=== PATIENT | male | born 1970 | race Caucasian/White ===

== ENCOUNTER 2019-12-20 18:08 | Emergency (ER) | payer MEDICAID, SELFPAY ==
[2019-12-20 18:10] VITALS: BP 151/100; PULSE 90; RESP 15; TEMP 36.9; O2SAT 100; BMI 25.2
--- NOTE | 2019-12-20 18:41 | ED.DCSUM_ITS ---
- ER Visit Summary Date of Service: 12/20/19 Chief Complaint: Dental pain History of Present Illness: The patient is a [address] Yu. He goes to [facility] in [place]. He reports that yesterday he bit into an apple and his right maxillary first molar became very loose. States he has a sharp pain is 10 on 10 severity. Is worsened by eating and hot or cold temperatures. Physical Examination: Vitals: Stable. Afebrile. Mouth: No trismus. No edema of the floor of the mouth. Right maxillary first molar is extremely loose. There is a great deal of root that is visible on the inside surface of the tooth. The root on the outside is not visible and is the only thing that is holding this tooth in place. There are caries in both his teeth around this. There is no focal abscess. There is no trismus. General: A&O x 3. NAD. Cardiovascular exam: Regular rate and rhythm, no murmur, rub or gallop. Respiratory exam: Clear to auscultation bilaterally. No wheezes or stridor. Abdominal exam: Soft, nontender, nondistended, normal bowel sounds. No peritoneal signs. Extremity: No clubbing, cyanosis, or edema. Emergency Department Course and Treatment: Patient was treated penicillin naproxen and [place]. He is resting comfortably. Treatment Plan: Patient be discharged instructed to follow-up the dentist as soon as possible. Is given a prescription for 10 [place], naproxen, and penicillin. Disposition: To home in improved and stable condition. Impression: 1. Dental pain. This note was generated with [employer] dictation software. It may contain incorrect words, spelling, and punctuation that were not noted in review of the chart prior to signing ED Disposition - Plan for ED Patient: Disposition: Home or Assisted Living Instructions: Dental Trauma Prescriptions: Naproxen [Naprosyn] 500 mg PO BID #14 tab Prescription Printed Hydrocodone Bitart/Apap 5-325 [[place] 5MG-325MG] 1 tab PO Q4H PRN PRN 2 Days #10 tab PRN Reason: Pain Prescription Printed Penicillin V Potassium 500 mg PO 4X/DAY #40 tab Prescription Printed Referrals: Dentist,Your [STAFF PHYSICIAN] - As soon as possible
[2019-12-20] MEDS: Naproxen 250 MG Tablet 500 MG PO (18:49)
[2019-12-20] MEDS: Penicillin Vk 250 MG Tablet 500 MG PO (18:49)
[2019-12-20] MEDS: HYDROcodone Bitartrate/Apap 5/325 Tablet PO (18:49)
== END 2019-12-20 18:57 | disposition home or self-care (01) ==
LOC: ED 18:56
PROVIDERS: Emergency Provider Emergency Medicine; PCP Family Medicine
DX: K08.89 Other specified disorders of teeth and supporting structures (principal); Z72.0 Tobacco use
CPT/HCPCS: 99282

== ENCOUNTER 2023-11-21 22:29 | Emergency (ER) | payer MEDICAID, SELFPAY ==
[2023-11-21 22:30] VITALS: BP 133/98; PULSE 87; RESP 18; TEMP 36.6; O2SAT 99; BMI 26.0
[2023-11-21] MEDS: Naproxen 500 MG Tablet PO (23:01)
[2023-11-21] MEDS: Penicillin Vk 250 MG Tablet 500 MG PO (23:01)
[2023-11-21 23:03] VITALS: BP 132/60; PULSE 75; RESP 16; O2SAT 96
--- NOTE | 2023-11-21 23:05 | ED.VIS.DENTA ---
HPI History of Present Illness Chief Complaint: Dental Informant: patient Narrative Narrative: Patient hurt his left central incisor about 2 weeks ago. He was painting overhead accidentally dropped the paint brush and it landed on his tooth. It has been slightly loose since. He evidently has contacted a dentist and he is seeing them next week. But about a week after he did this is started to get sore. He feels the gum is a little swollen. No fevers or chills. PFSH PFSH Medical History no medical history Home Medications naproxen 500 mg tablet (Naprosyn) 500 mg PO BID PRN pain #20 tabs 11/21/23 [Rx Last Taken Unknown] penicillin V potassium 500 mg tablet 500 mg PO 4X/DAY #40 tabs 11/21/23 [Rx Last Taken Unknown] Allergy/AdvReac Type Severity Reaction Status Date / Time No Known Allergies Allergy Verified 11/21/23 22:30 Social History Smoking Status: Current every day smoker tobacco type: cigarettes ROS ROS ED Constitutional Constitutional ED: Denies chills or fever(s) Eyes Eyes: Denies change in vision ENT ENT ED: Reports other Details: See history of present illness. No trouble swallowing Cardiovascular Cardiovascular: Denies chest pain Gastrointestinal Gastrointestinal: Denies nausea or vomiting Musculoskeletal Musculoskeletal: Denies neck pain Hematologic/Lymphatic Hematologic/Lymphatic: Denies easy bleeding or easy bruising EXAM Physical Exam Narrative Exam Narrative: General: Patient awake alert no acute distress. HEENT: Patient has some diffusely poor dentition. Left upper central incisor does have a little bit of looseness but is mild. The gum is retracted. There is some erosion. There is a little bit of redness and slight swelling of the gum on the posterior surface. But no drainable abscess. Floor the mouth is soft. No indication of Tha's. Const Vital Signs: 11/21/23 22:30 11/21/23 23:03 Temperature 98 F Temperature Source Temporal Pulse Rate 87 75 Respiratory Rate 18 16 Blood Pressure 133/98 H 132/60 H Blood Pressure Mean 109 84 Pulse Ox 99 96 Oxygen Delivery Method Room Air MDM MDM MDM Narrative Medical decision making narrative: Patient was treated with nonsteroidals antibiotics and follow-up with his dentist with whom he is already made an appointment. Discharge Plan Triage Chief Complaint: Dental ED Provider: Rashi Rodrigez Dx/Rx/DC Orders Clinical Impression: Pain, dental Instructions: Dental Abscess, Dental Trauma Prescriptions: New penicillin V potassium 500 mg tablet 500 mg PO 4X/DAY Qty: 40 0RF naproxen [Naprosyn] 500 mg tablet 500 mg PO BID PRN (Reason: pain) Qty: 20 0RF Primary Care Provider: Care Physician,No Primary Referrals: Syed Adorno MD [Non-Staff] - Activity Restrictions/Additional Instructions: Follow-up with your dentist as scheduled next week Disposition Disposition: Home, Self Care Discharge Date/Time: 11/21/23 23:03
--- OUTSIDE RECORDS SUMMARY | 2023-11-21 23:09 | XMS RPT_ITS | CCD ---
Author Name Unknown Address [address] [facility] [address] [place] [address] Organization [facility] Care Team Providers Care Activities Assistant Name Role Phone SUSHILA GHOSH, AMERICO Membreno Primary Care Physician MARE GHOSH, BIA [facility] caio CONTI MD., DR. AMERICO Membreno Primary Care Unavai lable Allergies Allergy Classification Reported Allergen(s) Allergy Type Date of Onset Reaction(s) Facility (1 source) Bee/Wasp/Ant venom Allergy to substance Anaphylactic reaction [facility] Medications Current Medications Medication Drug Class(es) Dates Sig (Normalized) Sig (Original) cyclobenzaprine hydrochloride 7.5 mg oral tablet (1 source) Muscle Relaxant Start: 07-23-2022 End: 08-02-2022 cyclobenzaprine 7.5 mg oral tablet Dose : 7.5 mg = 1 tab(s), Oral, TID, PRN for muscle spasm, X 10 day(s), # 30 tab(s), 0 Refill(s), 08/02/22 15:15:00 EDT, Sciatica Start Date: 07/23/22 Stop Date: 08/02/22 Status: Ordered naproxen 250 mg oral tablet (2 sources) Nonsteroidal Anti-inflammatory Drug Start: 07-23-2022 End: 08-02-2022 naproxen 250 mg oral tablet Dose : 250 mg = 1 tab(s), Oral, BID, X 10 day(s), # 20 tab(s), 0 Refill(s), 08/02/22 15:14:00 EDT, Sciatica Start Date: 07/23/22 Stop Date: 08/02/22 Status: Ordered Problems Problem Classification Problem Date Documented Da te Episodic/Chronic Open wounds of extremities (1 source) Dog bite of hand 03-22-2021 Episodic Other circulatory disease (1 source) Elevated blood pressure 07-17-2019 Episodic Spondylosis; intervertebral disc disorders; other back problems (1 source) Sciatica; Translations: [Sciatica, unspecified side] Onset: 07-23-2022 Episodic Vital Signs Date Time Vital Sign Value Performing Clinician Abmer milian 07-23-2022 15:26-0400 Diastolic blood pressure 94 mm[Hg] BIA GARVEY MD [facility] 07-23-2022 15:26-0400 Heart rate 84 /min BIA GARVEY MD [facility] 07-23-2022 15:26-0400 Respiratory rate 16 /min BIA GARVEY MD [facility] 07-23-2022 15:26-0400 Systolic blood pressure 126 mm[Hg] BIA GARVEY MD [facility] 07-23-2022 14:08-0400 Body height 167.6 cm BIA GARVEY MD [facility] 07-23-2022 14:08-0400 Body temperature 98.6 [degF] BIA GARVEY MD [facility] 07-23-2022 14:08-0400 Body weight 80 kg BIA GARVEY MD [facility] 07-23-2022 14:08-0400 Diastolic blood pressure 92 mm[Hg] BIA GARVEY MD [facility] 07-23-2022 14:08-0400 Heart rate 91 /min BIA GARVEY MD [facility] 07-23-2022 14:08-0400 Respiratory rate 24 /min BIA GARVEY MD [facility] 07-23-2022 14:08-0400 Systolic blood pressure 136 mm[Hg] BIA GARVEY MD [facility] Encounters Encounter Date Encounter Type Care Provider Facility Start: 07-23-2022 End: 07-23-2022 Emergency department patient visit BIA GARVEY MD Facility:B Start: 07-23-2022 End: 07-23-2022 Emergency department patient visit BIA GARVEY MD [facility] Procedures Date Procedure Procedure Detail Performing Clinician None (qualifier value) BIA GARVEY MD Payers Date Payer Category Payer Unknown [id number] 1970 Unknown [id number] Social History Date Type Detail Facility Start: 07-13-2019 Tobacco smoking status Heavy t obacco smoker (finding) [facility] Sex Assigned At Male [facility] Functional Status Date Assessment Result Facility 07-23-2022 Functional Status Independent [facility] 07-23-2022 Functional Status Resting [facility] Mental Status Date Assessment Result Facility 07-23-2022 Mental Status Orientation Oriented x 4 [facility] 07-23-2022 Mental Status [facility] Discharge instructions 07-23-2022 Note Date & Type Note Facility 07-23-2022 Hospital Discharg e instructions Patient Education 07/23/2022 15:15:11 BACK PAIN w/ SCIATICA Sciatica Sciatica is a condition that causes pain in the lower back and down into the buttock, hip, and leg. Sometimes the leg pain can happen without any back pain. Sciatica happens when a spinal nerve is irritated or has pressure put on it as comes out of the spinal canal in the lower back. This most often happens when a bulge or rupture of a nearby spinal disk presses on the nerve. Sciatica can also be caused by a narrowing of the spinal canal (spinal stenosis) or spasm of the muscle in the buttocks that the sciatic nerve passes through (pyriform muscle). Sciatica is also called lumbar radiculopathy. Sciatica may begin after a sudden twisting or bending force, such as in a car accident. Or it can happen after a simple awkward movement. In either case, muscle spasm often also happens. Muscle spasm makes the pain worse. A health care provider makes a diagnosis of sciatica from your symptoms and a physical exam. Unless you had an injury from a car accident or fall, you usually won t have X-rays taken at this time. This is because the nerves and disks in your back can t be seen on an X-ray. If the provider sees signs of a compressed nerve, you will need to schedule an MRI scan as an outpatient. Signs of a compressed nerve include loss of strength in a leg. Most sciatica gets better with medicine, exercise, and physical therapy. If your symptoms continue after at least 3 months of medical treatment, you may need surgery. Home care Follow these tips when caring for yourself at home: You may need to stay in bed the first few days. But as soon as possible, begin sitting or walking. This will help you avoid problems that come from staying in bed for long periods. When in bed, try to find a position that is comfortable. A firm mattress is best. Try lying flat on your back with pillows under your knees. You can also try lying on your side with your knees bent up toward your chest and a pillow between your knees. Avoid sitting for long periods. This puts more stress on your lower back than standing or walking. Use heat from a hot shower, hot bath, or heating pad to help ease pain. Massage can also help. You can also try using an ice pack. You can make your own ice pack by putting ice cubes in a plastic bag. Wrap the bag in a thin towel. Try both heat and cold to see which works best. Use the method that feels best for 20 minutes several times a day. You may use acetaminophen or ibuprofen to ease pain, unless another pain medicine was prescribed. Note: If you have chronic liver or kidney disease, talk with your health care provider before taking these medicines. Also talk with your provider if you ve had a stomach ulcer or GI bleeding. Use safe lifting methods. Don t lift anything heavier than 15 pounds until all of the pain is gone. Follow-up care Follow up with your health care provider if your symptoms don t start to get better after 1 week. You may need physical therapy or additional tests. If X-rays were taken, they will be looked at by a radiologist. You will be told of any new findings that may affect your care. When to seek medical advice Call your health care provider right away if any of these occur: Pain gets worse even after taking prescribed medicine Weakness or numbness in 1 or both legs or hips Numbness in your groin or genital area You can t control your bowel or bladder Fever Redness or swelling over your back or spine [id number] [employer]. [address] [place] [address]. All rights reserved. This information is not intended as a substitute for professional medical care. Always follow your healthcare professional's instructions. Follow Up Care 07/23/2022 14:00:52 With:AMERICO CONTI MD Address: [address] [place] [address] [id number] When:2-4 days [facility] Clinical Note 07-23-2022 Note Date & Type Note Facility 07-23-2022 Note Discharge Instructions Thank you for allowing [facility] to assist you with your healthcare needs. The following is important discharge information regarding your hospital visit. Diagnosis from Today's Visit Sciatica Back pain What to Do Next Instructions from Your Care Team No qualifying data available. Post Acute Orders No qualifying data available. You Need to Schedule the Following Appointments Follow Up with AMERICO CONTI MD When Within 2-4 days Where: [address] [place] [address] [phone]- Allergies Bee Stings (Anaphylactic reaction) Medications Please ask your primary doctor or pharmacist before taking any other medication not listed, including over the counter drugs, herbal medications, vitamins and or supplements as they may interact with your home medications. What How Much When Why Instructions Last Dose New cyclobenzaprine (cyclobenzaprine 7.5 mg oral tablet) 1 tab(s) by mouth Three (3) times a day as needed for for muscle spasm Sciatica Duration: 10 Days Printed Prescription Changed naproxen (naproxen 250 mg oral tablet) 1 tab(s) by mouth Two (2) times a day Sciatica Duration: 10 Days Printed Prescription Please take this list to your next doctor s visit. Bring all medications you take, including over the counter medications, herbals and other supplements with you to your doctor s visit. Patients and families are reminded to discard old lists and to update any records with all medication providers or retail pharmacies. Medication Leaflets cyclobenzaprine (esmer ferreira) Jenelleix, Comfort Pac with Cyclobenzaprine, Fexmid What is the most important information I should know about cyclobenzaprine? You should not use cyclobenzaprine if you have a thyroid disorder, heart block, congestive heart failure, a heart rhythm disorder, or you have recently had a heart attack. Do not use cyclobenzaprine if you have taken an MAO inhibitor in the past 14 days, such as isocarboxazid, linezolid, phenelzine, rasagiline, selegiline, or tranylcypromine. What is cyclobenzaprine? Cyclobenzaprine is a muscle relaxant. It works by blocking nerve impulses (or pain sensations) that are sent to your brain. Cyclobenzaprine is used together with rest and physical therapy to relieve muscle spasms caused by painful conditions such as an injury. Cyclobenzaprine may also be used for purposes not listed in this medication guide. What should I discuss with my healthcare provider before taking cyclobenzaprine? You should not use cyclobenzaprine if you are allergic to it, or if you have: a thyroid disorder; heart block, heart rhythm disorder, congestive heart failure; or if you have recently had a heart attack. Cyclobenzaprine is not approved for use by anyone younger than 15 years old. Do not use cyclobenzaprine if you have taken an MAO inhibitor in the past 14 days. A dangerous drug interaction could occur. MAO inhibitors include isocarboxazid, linezolid, phenelzine, rasagiline, selegiline, and tranylcypromine. Some medicines can interact with cyclobenzaprine and cause a serious condition called serotonin syndrome. Be sure your doctor knows if you also take stimulant medicine, opioid medicine, herbal products, or medicine for depression, mental illness, Parkinson's disease, migraine headaches, serious infections, or prevention of nausea and vomiting. Ask your doctor before making any changes in how or when you take your medications. Tell your doctor if you have ever had: liver disease; glaucoma; enlarged prostate; or problems with urination. It is not known whether this medicine will harm an unborn baby. Tell your doctor if you are or plan to become . It may not be safe to breast-feed while using this medicine. Ask your doctor about any risk. Older adults may be more sensitive to the effects of this medicine. How should I take cyclobenzaprine? Follow all directions on your prescription label and read all medication guides or instruction sheets. Your doctor may occasionally change your dose. Use the medicine exactly as directed. Cyclobenzaprine is usually taken once daily for only 2 or 3 weeks. Follow your doctor's dosing instructions very carefully. Swallow the capsule whole and do not crush, chew, break, or open it. Take the medicine at the same time each day. Call your doctor if your symptoms do not improve after 3 weeks, or if they get worse. Store at room temperature away from moisture, heat, and light. What happens if I miss a dose? Take the medicine as soon as you can, but skip the missed dose if it is almost time for your next dose. Do not take two doses at one time. What happens if I overdose? Seek emergency medical attention or call the Poison Help line at . An overdose of cyclobenzaprine can be fatal. Overdose symptoms may include severe drowsiness, vomiting, fast heartbeats, tremors, agitation, or hallucinations. What should I avoid while taking cyclobenzaprine? Avoid driving or hazardous activity until you know how this medicine will affect you. Your reactions could be impaired. Avoid drinking alcohol. Dangerous side effects could occur. What are the possible side effects of cyclobenzaprine? Get emergency medical help if you have signs of an allergic reaction: hives; difficult breathing; swelling of your face, lips, tongue, or throat. Stop using cyclobenzaprine and call your doctor at once if you have: fast or irregular heartbeats; chest pain or pressure, pain spreading to your jaw or shoulder; or sudden numbness or weakness (especially on one side of the body), slurred speech, balance problems. Seek medical attention right away if you have symptoms of serotonin syndrome, such as: agitation, hallucinations, fever, sweating, shivering, fast heart rate, muscle stiffness, twitching, loss of coordination, nausea, vomiting, or diarrhea. Serious side effects may be more likely in older adults. Common side effects may include: drowsiness, tiredness; headache, dizziness; dry mouth; or upset stomach, nausea, constipation. This is not a complete list of side effects and others may occur. Call your doctor for medical advice about side effects. You may report side effects to FDA at 9-005-QWY-9915. What other drugs will affect cyclobenzaprine? Using cyclobenzaprine with other drugs that make you drowsy can worsen this effect. Ask your doctor before using opioid medication, a sleeping pill, a muscle relaxer, or medicine for anxiety or seizures. Tell your doctor about all your other medicines, especially: bupropion (Zyban, for smoking cessation); meperidine; tramadol; verapamil; cold or allergy medicine that contains an antihistamine (Benadryl and others); medicine to treat Parkinson's disease; medicine to treat excess stomach acid, stomach ulcer, motion sickness, or irritable bowel syndrome; medicine to treat overactive bladder; or bronchodilator asthma medication. This list is not complete. Other drugs may affect cyclobenzaprine, including prescription and [id number] medicines, vitamins, and herbal products. Not all possible drug interactions are listed here. Where can I get more information? Your pharmacist can provide more information about cyclobenzaprine. Remember, keep this and all other medicines out of the reach of children, never share your medicines with others, and use this medication only for the indication prescribed. Every effort has been made to ensure that the information provided by [employer]. [employer]') is accurate, up-to-date, and complete, but no guarantee is made to that effect. Drug information contained herein may be time sensitive. [employer] information has been compiled for use by healthcare practitioners and consumers in the [place] and therefore [employer] does not warrant that uses outside of the [place] are appropriate, unless specifically indicated otherwise. [employer] drug information does not endorse drugs, diagnose patients or recommend therapy. [employer] drug information is an informational resource designed to assist licensed healthcare practitioners in caring for their patients and/or to serve consumers viewing this service as a supplement to, and not a substitute for, the expertise, skill, knowledge and judgment of healthcare practitioners. The absence of a warning for a given drug or drug combination in no way should be construed to indicate that the drug or drug combination is safe, effective or appropriate for any given patient. [employer] does not assume any responsibility for any aspect of healthcare administered with the aid of information [employer] provides. The information contained herein is not intended to cover all possible uses, directions, precautions, warnings, drug interactions, allergic reactions, or adverse effects. If you have questions about the drugs you are taking, check with your doctor, nurse or pharmacist. Copyright 8500-9305 [employer]. Version: 5.01. Revision Date: 07/09/2018. naproxen (na PROX en) Aleve, Anaprox-DS, Midol Extended Relief, Naprelan 500, Naprosyn What is the most important information I should know about naproxen? Naproxen can increase your risk of fatal heart attack or stroke. Do not use this medicine just before or after heart bypass surgery (coronary artery bypass graft, or CABG). Naproxen may also cause stomach or intestinal bleeding, which can be fatal. What is naproxen? Naproxen is a nonsteroidal anti-inflammatory drug (NSAID). Naproxen is used to treat pain or inflammation caused by conditions such as arthritis, ankylosing spondylitis, tendinitis, bursitis, gout, or menstrual cramps. The delayed-release or extended-release tablets are slower-acting forms of naproxen that are used only for treating chronic conditions such as arthritis or ankylosing spondylitis. These forms of naproxen will not work fast enough to treat acute pain. Naproxen may also be used for purposes not listed in this medication guide. What should I discuss with my healthcare provider before taking naproxen? Naproxen can increase your risk of fatal heart attack or stroke, even if you don't have any risk factors. Do not use this medicine just before or after heart bypass surgery (coronary artery bypass graft, or CABG). Naproxen may also cause stomach or intestinal bleeding, which can be fatal. These conditions can occur without warning while you are using naproxen, especially in older adults. You should not use naproxen if you are allergic to it, or if you have ever had an asthma attack or severe allergic reaction after taking aspirin or an NSAID. Ask a doctor before giving naproxen to a child younger than 12 years old. Ask a doctor or pharmacist if this medicine is safe to use if you have: heart disease, high blood pressure, high cholesterol, diabetes, or if you smoke; a heart attack, stroke, or blood clot; stomach ulcers or bleeding; asthma; liver or kidney disease; fluid retention; or if you take aspirin to prevent heart attack or stroke. If you are , you should not take naproxen unless your doctor tells you to. Taking an NSAID during the last 20 weeks of can cause serious heart or kidney problems in the unborn baby and possible complications with your . It may not be safe to breastfeed while using this medicine. Ask your doctor about any risk. How should I take naproxen? Use exactly as directed on the label, or as prescribed by your doctor. Use the lowest dose that is effective in treating your condition. Shake the oral suspension (liquid) before you measure a dose. Measure a dose with the supplied measuring device (not a kitchen spoon). Take this medicine with food or milk if it upsets your stomach. Always follow directions on the medicine label about giving this medicine to a child. Naproxen doses are based on weight in children. Your child's dose needs may change if the child gains or loses weight. If you use naproxen long-term, you may need frequent medical tests. This medicine can affect the results of certain medical tests. Tell any doctor who treats you that you are using naproxen. Store at room temperature away from moisture, heat, and light. Keep the bottle tightly closed when not in use. What happens if I miss a dose? Since naproxen is used when needed, you may not be on a dosing schedule. Skip any missed dose if it's almost time for your next dose. Do not use two doses at one time. What happens if I overdose? Seek emergency medical attention or call the Poison Help line at . What should I avoid while taking naproxen? Avoid drinking alcohol. It may increase your risk of stomach bleeding. Avoid taking aspirin or other NSAIDs unless your doctor tells you to. Ask a doctor or pharmacist before using other medicines for pain, fever, swelling, or cold/flu symptoms. They may contain ingredients similar to naproxen (such as aspirin, ibuprofen, or ketoprofen). Ask your doctor before using an antacid, and use only the type your doctor recommends. Some antacids can make it harder for your body to absorb naproxen. What are the possible side effects of naproxen? Get emergency medical help if you have signs of an allergic reaction (runny or stuffy nose, wheezing or trouble breathing, hives, swelling in your face or throat) or a severe skin reaction (fever, sore throat, burning eyes, skin pain, red or purple skin rash with blistering and peeling). Stop using naproxen and seek medical treatment if you have a serious drug reaction that can affect many parts of your body. Symptoms may include skin rash, fever, swollen glands, muscle aches, severe weakness, unusual bruising, or yellowing of your skin or eyes. Get emergency medical help if you have signs of a heart attack or stroke: chest pain spreading to your jaw or shoulder, sudden numbness or weakness on one side of the body, slurred speech, leg swelling, feeling short of breath. Stop using naproxen and call your doctor at once if you have: shortness of breath (even with mild exertion); swelling or rapid weight gain; the first sign of any skin rash or blister, no matter how mild; signs of stomach bleeding--bloody or tarry stools, coughing up blood or vomit that looks like coffee grounds; liver problems--nausea, upper stomach pain, loss of appetite, dark urine, mindy-colored stools, jaundice (yellowing of the skin or eyes); kidney problems--little or no urination, painful urination, swelling in your feet or ankles; or low red blood cells (anemia)--pale skin, unusual tiredness, feeling light-headed or short of breath, cold hands and feet. Common side effects may include: headache; indigestion, heartburn, stomach pain; or flu symptoms; This is not a complete list of side effects and others may occur. Call your doctor for medical advice about side effects. You may report side effects to FDA at 1-323-RLD-4400. What other drugs will affect naproxen? Ask your doctor before using naproxen if you take an antidepressant. Taking certain antidepressants with an NSAID may cause you to bruise or bleed easily. Ask a doctor or pharmacist before using naproxen with any other medications, especially: other NSAIDs or salicylates (diflunisal, salsalate); antacids and sucralfate; cholestyramine; cyclosporine; digoxin; lithium; methotrexate; pemetrexed; probenecid; warfarin (Coumadin, Jantoven) or similar blood thinners; a diuretic or 'water pill'; or heart or blood pressure medication. This list is not complete. Other drugs may affect naproxen, including prescription and npvo-oae-lanvmpf medicines, vitamins, and herbal products. Not all possible drug interactions are listed here. Where can I get more information? Your pharmacist can provide more information about naproxen. Remember, keep this and all other medicines out of the reach of children, never share your medicines with others, and use this medication only for the indication prescribed. Every effort has been made to ensure that the information provided by [employer] is accurate, up-to-date, and complete, but no guarantee is made to that effect. Drug information contained herein may be time sensitive. [employer] information has been compiled for use by healthcare practitioners and consumers in the [place] and therefore [employer] does not warrant that uses outside of the [place] are appropriate, unless specifically indicated otherwise. [employer] information does not endorse drugs, diagnose patients or recommend therapy. [employer] drug information is an informational resource designed to assist licensed healthcare practitioners in caring for their patients and/or to serve consumers viewing this service as a supplement to, and not a substitute for, the expertise, skill, knowledge and judgment of healthcare practitioners. The absence of a warning for a given drug or drug combination in no way should be construed to indicate that the drug or drug combination is safe, effective or appropriate for any given patient. [employer] does not assume any responsibility for any aspect of healthcare administered with the aid of information [employer] provides. The information contained herein is not intended to cover all possible uses, directions, precautions, warnings, drug interactions, allergic reactions, or adverse effects. If you have questions about the drugs you are taking, check with your doctor, nurse or pharmacist. Copyright 0844-5033 [employer]. Version: 20.. Revision Date: 02/20/2022. Education Materials Sciatica Sciatica is a condition that causes pain in the lower back and down into the buttock, hip, and leg. Sometimes the leg pain can happen without any back pain. Sciatica happens when a spinal nerve is irritated or has pressure put on it as comes out of the spinal canal in the lower back. This most often happens when a bulge or rupture of a nearby spinal disk presses on the nerve. Sciatica can also be caused by a narrowing of the spinal canal (spinal stenosis) or spasm of the muscle in the buttocks that the sciatic nerve passes through (pyriform muscle). Sciatica is also called lumbar radiculopathy. Sciatica may begin after a sudden twisting or bending force, such as in a car accident. Or it can happen after a simple awkward movement. In either case, muscle spasm often also happens. Muscle spasm makes the pain worse. A health care provider makes a diagnosis of sciatica from your symptoms and a physical exam. Unless you had an injury from a car accident or fall, you usually won t have X-rays taken at this time. This is because the nerves and disks in your back can t be seen on an X-ray. If the provider sees signs of a compressed nerve, you will need to schedule an MRI scan as an outpatient. Signs of a compressed nerve include loss of strength in a leg. Most sciatica gets better with medicine, exercise, and physical therapy. If your symptoms continue after at least 3 months of medical treatment, you may need surgery. Home care Follow these tips when caring for yourself at home: You may need to stay in bed the first few days. But as soon as possible, begin sitting or walking. This will help you avoid problems that come from staying in bed for long periods. When in bed, try to find a position that is comfortable. A firm mattress is best. Try lying flat on your back with pillows under your knees. You can also try lying on your side with your knees bent up toward your chest and a pillow between your knees. Avoid sitting for long periods. This puts more stress on your lower back than standing or walking. Use heat from a hot shower, hot bath, or heating pad to help ease pain. Massage can also help. You can also try using an ice pack. You can make your own ice pack by putting ice cubes in a plastic bag. Wrap the bag in a thin towel. Try both heat and cold to see which works best. Use the method that feels best for 20 minutes several times a day. You may use acetaminophen or ibuprofen to ease pain, unless another pain medicine was prescribed. Note: If you have chronic liver or kidney disease, talk with your health care provider before taking these medicines. Also talk with your provider if you ve had a stomach ulcer or GI bleeding. Use safe lifting methods. Don t lift anything heavier than 15 pounds until all of the pain is gone. Follow-up care Follow up with your health care provider if your symptoms don t start to get better after 1 week. You may need physical therapy or additional tests. If X-rays were taken, they will be looked at by a radiologist. You will be told of any new findings that may affect your care. When to seek medical advice Call your health care provider right away if any of these occur: Pain gets worse even after taking prescribed medicine Weakness or numbness in 1 or both legs or hips Numbness in your groin or genital area You can t control your bowel or bladder Fever Redness or swelling over your back or spine [id number] [employer]. [address] [place] [address]. All rights reserved. This information is not intended as a substitute for professional medical care. Always follow your healthcare professional's instructions. Additional Information VACCINATE! IT SAVES LIVES! Members of the community who have not yet received the COVID-19 vaccine and would like to receive it can visit one of [facility] vaccine clinics. There are many vaccine clinic locations within the [facility]. For locations and available times, please visit [email or web address]. It is important to note that some COVID mobile vaccine clinics are held outdoors and may be canceled in rainy or stormy conditions. To learn more about pediatric vaccinations (ages 5-11), we invite you to visit the [facility] webpage. [email or web address] -[email or web address] To learn more about the COVID-19 vaccine, we invite you to visit the [facility] website for a list of frequently asked questions. [email or web address] [email or web address] [facility] Patient Portal Access Instructions: Stay connected with your healthcare team and access your personal medical information anytime with the [email or web address]. If you would like a full copy of your medical records please contact the [facility] Medical Records Department Saturday through Saturday between 8a.m. and 4:30p.m. Please follow the directions below to access the portal: 1.Access the email account you provided upon registration to the [facility].2.Look for an invitation email from [facility].3.Open the email and access the invitation link: Accept Invitation to [email or web address]4.Fill in the required ortiz to create your account. Sign into [email or web address] with your username and password that you created in the above steps to stay up to date. You can then view a summary of results, a summary of your visits, and the ability to download your summaries to your computer or send the information securely to a physician. Remember that your healthcare information is confidential, so carefully consider who you will allow to register on the [email or web address] Patient Portal for access to your information. You can also access the [email or web address] Patient Portal on the [employer] roshan. Simply click on Health Records under Health Data and then click on the [employer] logo. HOW TO SAFELY DISPOSE OF PRESCRIPTION MEDICATIONS Please use one of the following methods to safely dispose of your unused medications. 1.Use a drug disposal kit: the drug disposal pouch allows you to safely discard your old and unused drugs. Ask your nurse to give you one when you are discharged.2.Visit a local take-back location: Many local pharmacies and police departments have programs that collect old and unwanted prescription drugs. Call your local pharmacy or go to http://bit.[employer]/8O6Vc4e to find one close to you.3.Make use of household items: Use cat litter or old coffee grounds to dispose medications if other options are not available. Mix your drugs with these household products, seal them in an airtight container and throw it into the garbage. Call [facility]: [phone] to be sure your drugs can be disposed of in this way. Some medicines may require a different approach.4.Never flush your medications down the toilet. IF YOU HAVE BEEN PRESCRIBED AN OPIOIDS FOR PAIN If you have been prescribed an opioid (such as hydrocodone, oxycodone or morphine), it is critical to understand the possible side effects and risks of opioid pain medications. Even when taken as directed, opioids can have several side effects including: Tolerance, meaning you might need to take more of a medication for the same pain relief. Nausea, vomiting and/or constipation. Sleepiness, dizziness, dry mouth, confusion, depression or itching. Physical dependence, meaning you have withdrawal symptoms when a medication is stopped ? this can develop within a few days. KNOW YOUR RESPONSIBILITIES It is important to know exactly how much and how often to take the opioid pain medications you are prescribed. Never take opioids in higher amounts or more often than prescribed. Do not combine opioids with alcohol or other drugs that cause drowsiness, such as benzodiazepines, also known as benzos, including diazepam and alprazolam, muscle relaxants or sleep aids. Never sell or share prescription opioids. This is illegal. Store opioids in a secure place and out of reach of others (including children, family, friends and visitors). The last page(s) of this document has been signed and retained as a CHART COPY Signatures Patient Education Materials BACK PAIN w/ SCIATICA Medication Leaflets cyclobenzaprine, naproxen My discharge plan and instructions have been reviewed and explained to me and I,AMAURY MAI understand my current condition and have read and understand these discharge instructions. I have received a written copy of the plan/instructions. If I have questions, I am aware that I should contact my doctor. Patient/Rn Eligibility Signature: _ Date/Time: Relationship to Patient: Witness Name/Signature: Date/Time: [facility] Evaluation + Plan note Note Date & Type Note Facility Evaluation + Plan note No data available for this section [facility] Summary Purpose Family History No Family History Records Found Advance Directives No Advanced Directives Records Found Additional Source Comments Care Team (unrecognized sect ion and content) Care Team Personnel Name: AMERICO CONTI MD Position: P4 Physician - Primary Care Med Service: Active Provider Member Role: Primary Care Physician Address: Address: [address] [facility] [place], [place] [address] Care Team Related Persons Name: MARCY MAI Address: Home [address] [place] [place], [place] [id number] (unrecognized sect ion and content) No Status Records Found INFORMATION SOURCE (unrecogn ized section and content) FOR RECORDS PERTAINING TO PATIENTS WHO ARE OR HAVE BEEN ENROLLED IN A CHEMICAL DEPENDENCY/SUBSTANCEABUSE PROGRAM, SOME INFORMATION MAY BE OMITTED. This clinical summary was aggregated from multiple sources. Caution should be exercised in using it in the provision of clinical care. This summary normalizes information from multiple sources, and as a consequence, information in this document may materially change the coding, format and clinical context of patient data. In addition, data may be omitted in some cases. CLINICAL DECISIONS SHOULD BE BASED ON THE PRIMARY CLINICAL RECORDS. [facility] [employer] provides no warranty or guarantee of the accuracy or completeness of information in this document.
== END 2023-11-21 23:03 | disposition home or self-care (01) ==
LOC: ED 22:58
PROVIDERS: Emergency Provider Emergency Medicine; Visit Provider Emergency Medicine
DX: K08.89 Other specified disorders of teeth and supporting structures (principal); F17.210 Nicotine dependence, cigarettes, uncomplicated
CPT/HCPCS: 99283

== ENCOUNTER 2024-03-25 23:50 | Emergency (ER) | payer SELFPAY ==
[2024-03-25 23:50] VITALS: BP 116/87; PULSE 84; RESP 16; TEMP 36.2; O2SAT 98; BMI 25.1
--- NOTE | 2024-03-26 01:48 | EDS_ITS ---
HPI History of Present Illness HPI Narrative: Patient presents with a fishhook in the side of his left knee that occurred earlier today. Patient states he tried to remove it with a pair of pliers but was unsuccessful. Patient states his last tetanus was within the last 5 years. Patient denies any bleeding. Patient denies any redness or swelling. Patient denies any discharge or drainage. Patient denies any other injuries. Chief Complaint: Foreign Body Informant: patient Onset/Context/Timing Onset: Today Context: Sudden Onset Timing: Continuous Quality of Pain: Dull Location: Left knee Worsened by: Nothing Relieved by: Nothing Associated Symptoms Associated Symptoms: Negative for Parasthesia, Weakness or Loss of Funtion Narrative Tetanus Immunization: <5 years PFSH PFSH Medical History no medical history no medical history Home Medications ?Medication ?Instructions ?Recorded ?Last Taken ?Type NK 03/25/24 Unknown History Allergy/AdvReac Type Severity Reaction Status Date / Time No Known Allergies Allergy Verified 03/25/24 23:50 Surgical History no surgical history no surgical history Social History Smoking Status: Current every day smoker tobacco type: cigarettes ROS ROS ED Constitutional Constitutional ED: Denies chills or fever(s) Eyes Eyes: Denies blurry vision or change in vision ENT ENT ED: Denies rhinorrhea or sore throat Cardiovascular Cardiovascular: Denies chest pain or palpitations Respiratory/Chest Respiratory/Chest: Denies cough or dyspnea Gastrointestinal Gastrointestinal: Denies nausea or vomiting Genitourinary Genitourinary ED: Denies dysuria or hematuria Musculoskeletal Musculoskeletal: Denies back pain or neck pain Integumentary Denies abscess or rash Neurologic Neurologic: Denies headache(s) or weakness Allergic/Immunologic Allergic/Immunologic ED: Denies mouth swelling or urticaria EXAM Physical Exam Const Vital Signs: 03/25/24 23:50 03/26/24 01:00 Temperature 97.2 F L Temperature Source Temporal Pulse Rate 84 Respiratory Rate 16 Respiratory Effort Normal Non-Labored Respiratory Pattern Normal Blood Pressure 116/87 H Blood Pressure Mean 96 Pulse Ox 98 Oxygen Delivery Method Room Air Positive well nourished and well developed General Appearance ED: well developed HEENT Reports moist mucous membranes Neck full ROM and supple Extremity Extremity Narrative: There is a fishhook in the lateral aspect of the patient's left knee area. It goes through his pants. There is no erythema. There is no bleeding noted. There is no warmth. There is no tenderness noted. Neuro oriented x3, CN's II-XII intact bilaterally, moves all extremities and no sensory deficits noted Sensorium / Orientation: alert Motor Exam: strength 5/5 throughout MDM MDM MDM Narrative Medical decision making narrative: The pants were cut away from the fishhook. The skin was cleaned and anesthetized with 1% lidocaine locally. The fishhook was pushed through the skin and the renee was cut off. The fishhook was then easily removed. Patient tolerated the procedure well. Bacitracin dressing was applied. Patient was instructed to keep the wound clean and dry. Patient was instructed to follow-up with his primary care physician in 7 to 10 days. Patient understood and was agreeable with the plan. All questions were answered. Discharge Plan Triage Chief Complaint: Foreign Body ED Provider: Jerson Danielle Dx/Rx/DC Orders Clinical Impression: Foreign body of skin of left lower extremity, Tobacco use disorder, Cannabis use disorder Instructions: ED Foreign Body Soft Tissue Prescriptions: No Action NK Primary Care Provider: Care Physician,No Primary Referrals: Jadiel Jolley MD [Med Staff - [facility]] - 1-2 Weeks Care Physician,No Primary [Primary Care Provider] - Print Language: Congolese Disposition Disposition: Home, Self Care
[2024-03-26 02:13] VITALS: BP 117/65; PULSE 79; RESP 16; TEMP 36.2; O2SAT 98
== END 2024-03-26 02:23 | disposition home or self-care (01) ==
LOC: ED 03-26 02:19
PROVIDERS: Emergency Provider Emergency Medicine; Visit Provider Emergency Medicine
DX: S80.252A Superficial foreign body, left knee, initial encounter (principal); F12.90 Cannabis use, unspecified, uncomplicated; F17.210 Nicotine dependence, cigarettes, uncomplicated; W26.8XXA Contact with other sharp object(s), not elsewhere classified, initial encounter
CPT/HCPCS: 99282

== ENCOUNTER 2024-04-04 19:26 | Emergency (ER) | payer SELFPAY ==
[2024-04-04 19:27] VITALS: BP 135/98; PULSE 84; RESP 16; TEMP 36.4; O2SAT 97
--- NOTE | 2024-04-04 19:43 | EX.ED.GENINJ ---
HPI <ALVAREZ Lowe - Last Filed: 04/04/24 20:27> History of Present Illness Chief Complaint: Laceration Narrative Narrative: 53-year-old male had an oscillator blade stored in his backseat and he reached back to grab something and accidentally cut his right palm. Bleeding is controlled. No weakness numbness or tingling. He is right-hand dominant. Tetanus is up-to-date. PFSH <ALVAREZ Lowe - Last Filed: 04/04/24 20:27> PFSH Home Medications ?Medication ?Instructions ?Recorded ?Last Taken ?Type NK 03/25/24 Unknown History Allergy/AdvReac Type Severity Reaction Status Date / Time No Known Allergies Allergy Verified 03/25/24 23:50 Social History Smoking Status: Current every day smoker tobacco type: cigarettes ROS <ALVAREZ Lowe - Last Filed: 04/04/24 20:27> ROS ED ROS Narrative Neuro: Negative for motor/sensory dysfunction. Skin: Positive for laceration. Musc: Negative for joint pain, swelling. EXAM <ALVAREZ Lowe - Last Filed: 04/04/24 20:27> Physical Exam Narrative Exam Narrative: CONST: Patient sitting in no acute distress. EYES: Normal inspection. SKIN: 3 cm linear laceration right palm over hypothenar eminence down to the subcutaneous tissue. No bleeding or foreign body. EXTREMITIES: Normal appearance, full range of motion right wrist hand and digits. Normal motor and sensory function median radial ulnar distributions, 2+ radial pulse and brisk cap refill. NEURO: Alert and answering questions appropriately. PSYCH: Normal affect. Const Vital Signs: 04/04/24 19:27 04/04/24 20:11 Temperature 97.6 F L 97.9 F Temperature Source Temporal Pulse Rate 84 53 L Respiratory Rate 16 14 Blood Pressure 135/98 H 137/96 H Blood Pressure Mean 110 109 Pulse Ox 97 92 Oxygen Delivery Method Room Air <Dr. Zuleika Osuna DO - Last Filed: 04/09/24 08:58> Physical Exam Const Vital Signs: 04/04/24 19:27 04/04/24 20:11 Temperature 97.6 F L 97.9 F Temperature Source Temporal Pulse Rate 84 53 L Respiratory Rate 16 14 Blood Pressure 135/98 H 137/96 H Blood Pressure Mean 110 109 Pulse Ox 97 92 Oxygen Delivery Method Room Air PROC <ALVAREZ Lowe - Last Filed: 04/04/24 20:27> Procedures Lacerations right palm: Length: 1.18 in Depth: Sub Q Shape: Linear Prep: Sterile Conditions and Shure-Clens Laceration repair: Irrigated and Lidocaine Irrigated (ml): 100 Number of Sutures/Mcintosh: 4 Suture Information: Ethilon and 5-0 MDM <ALVAREZ Lowe - Last Filed: 04/04/24 20:27> [facility] Narrative Medical decision making narrative: 3 cm left palmar laceration. There is no tendon injury and extremity is neurovascularly intact. Wound was cleansed, repaired with 4 simple interrupted sutures, dressed and wound care discussed. His tetanus is up-to-date. He was discharged in stable condition <Dr. Zuleika Osuna DO - Last Filed: 04/09/24 08:58> [facility] Narrative Medical decision making narrative: 3 cm left palmar laceration. There is no tendon injury and extremity is neurovascularly intact. Wound was cleansed, repaired with 4 simple interrupted sutures, dressed and wound care discussed. His tetanus is up-to-date. He was discharged in stable condition I have personally performed a face to face assessment of the patient and have reviewed the SKY Note. I performed a substantive portion of the visit including all aspects of the following. My guerrero findings include: History is patient is right hand Dominant presenting with a laceration to his left palm. Patient apparently was reaching into his backseat to grab something and had a sawblade in the backseat and cut himself on it. He is neurovascular intact distally. I do not think imaging is indicated at this time, no concern for foreign body. No concern for tendinous injury based on physical exam. Suture repair performed by ALVAREZ. Patient is given wound care instructions and return precautions. He was agreeable to plan of care. Discharged home in stable condition. Other additions or changes: [None] Discharge Plan Triage Chief Complaint: Laceration ED Midlevel Provider: Kami Hylton ED Provider: Zuleika Osuna Dx/Rx/DC Orders Clinical Impression: Laceration of right hand Instructions: ED Laceration Extremity Prescriptions: No Action NK Primary Care Provider: Care Physician,No Primary Referrals: Care Physician,No Primary [Primary Care Provider] - Activity Restrictions/Additional Instructions: Clean with soap and water once daily. Stitches need removed in 7 days. Return immediately if any signs of infection develop like redness, swelling, pus or fever. Print Language: Central African Disposition Disposition: Home, Self Care Discharge Date/Time: 04/04/24 20:12
[2024-04-04 20:11] VITALS: BP 137/96; PULSE 53; RESP 14; TEMP 36.6; O2SAT 92
== END 2024-04-04 20:12 | disposition home or self-care (01) ==
LOC: ED 20:08
PROVIDERS: Emergency Provider Emergency Medicine; Visit Provider Emergency Medicine
DX: S61.411A Laceration without foreign body of right hand, initial encounter (principal); F17.210 Nicotine dependence, cigarettes, uncomplicated; W26.8XXA Contact with other sharp object(s), not elsewhere classified, initial encounter
CPT/HCPCS: 12002; 99283

== ENCOUNTER 2025-01-05 19:17 | Emergency (ER) | payer MEDICAID, SELFPAY ==
[2025-01-05 19:17] VITALS: BP 168/95; PULSE 77; RESP 18; TEMP 36.1; O2SAT 100; BMI 24.6
--- NOTE | 2025-01-05 20:08 | CT_ITS ---
PROCEDURE: CTA CHEST W/WO CONTRAST 01/05/2025 REASON FOR EXAM: 54-year-old male, right shoulder pain, smoker. TECHNIQUE: CTA axial imaging of the chest with intravenous contrast. Coronal and Sagittal reconstruction series were provided. 3D, 3D post processing, 3D reconstructions, Maximum intensity projection (MIPs) Volume rendering and Shaded surface rendering was provided. PATIENT PREPARATION: Per protocol CONTRAST: Isovue-300 VOLUME: 100mL One or more dose reduction techniques were used (e.g., Automated exposure control, adjustment of the mA and/or kV according to patient size, use of iterative reconstruction technique). RADIATION DOSE SUMMARY: CTDlvol: 20 mGy DLP: 350 mGycm COMPARISON: None. FINDINGS: Hardware: None. Lymph nodes: No axillary, mediastinal or hilar lymphadenopathy. Heart: The heart is normal in size without pericardial effusion. The great vessels are normal in caliber. Moderate coronary artery calcifications. Mild thoracic aortic calcifications. Pulmonary Vessels: No filling defect in the segmental or subsegmental pulmonary arteries to suggest pulmonary embolism. Lungs and Airways: Trace retained secretions within the central airways. Moderate emphysema and scattered areas of scarring. Consolidative opacity within the left upper lobe, abutting the pleural surface measuring approximately 5.3 x 2.3 cm (series 2, image 253). Right lower lobe pulmonary nodule along the pleural surface (series 2, image 80). No pleural effusion or pneumothorax. Upper Abdomen: Calcific plaque of the abdominal aorta. Bones: Degenerative changes of the thoracic spine. CT/CTA Chest W/WO Contrast IMPRESSION: 1. No acute pulmonary embolism. 2. Consolidative opacity within the left upper lobe, which is nonspecific, kramer katie most concerning for pulmonary neoplasm. PET-CT examination and correlation with any prior chest imaging is recommended. Additional differential considerations include pneumonitis/pneumonia. 3. Moderate emphysema. 4. Moderate coronary artery calcifications. Reading Location: [id number]
--- NOTE | 2025-01-05 20:08 | EKG12_ITS ---
Test Reason : DYSRHYTHMIA Blood Pressure : */* mmHG Vent. Rate : 69 BPM Atrial Rate : 69 BPM P-R Int : 134 ms QRS Dur : 76 ms QT Int : 386 ms P-R-T Axes : 73 70 65 degrees QTcB Int : 413 ms Normal sinus rhythm with sinus arrhythmia Normal ECG Confirmed by DILCIA PAT MD ([id number]), visual effects editor SY MCKINNEY ([id number]) on 01/06/2025 8:31:33 AM Referred By: TB Confirmed By: DILCIA PAT MD
[2025-01-05] MEDS: Morphine 4 MG/ML Syringe IV (20:20)
[2025-01-05] MEDS: Ondansetron 4 MG/2 ML Vial IV (20:20)
[2025-01-05] MEDS: 0.9% Normal Saline (1000mL) 1,000 ML 999 ML IV (20:21)
[2025-01-05 20:25] LABS: Absolute Lymphocyte Count 2.48 X10^3/uL (0.83-4.51); Absolute Neutrophil Count 3.6 X10^3/uL (2.0-7.7); Basophil# 0.07 X10^3/uL; Eosinophils% 2.9 % (0-5); Hematocrit 43.8 % (40-54); Hemoglobin 15.2 g/dL (13.0-16.5); Lymphocyte # 2.48 X10^3/ul (0.83-4.51); Lymphocyte % 36.4 % (19-41); Mean Corp Hgb Conc 34.7 g/dL (32-36); Mean Corpuscular Hgb 31.4 pg (27.0-32.0); Mean Corpuscular Volume 90.5 fL (80-94); Mean Platelet Vol. 9.4 fl (6.2-12.0); Monocyte% 7.3 % (0-10); NRBC Flagged by Analyzer 0 % (0-5); Neutrophil # 3.55 X10^3/uL (2.7-7.7); Neutrophil % 52.3 % (47-70); Platelet Count 308 K/mm3 (150-450); RBC Distribution Width CV 12.3 % (11.6-14.6); RBC Distribution Width SD 40.4 fl (35.1-43.9); Red Blood Count 4.84 M/mm3 (4.6-6.2); White Blood Count 6.8 K/mm3 (4.4-11.0)
--- NOTE | 2025-01-05 20:33 | RAD_ITS ---
EXAM: Four views of the right shoulder. CLINICAL HISTORY: Pain. COMPARISON: None. TECHNIQUE: Four views of the right shoulder. FINDINGS: No evidence of fracture is present. The right shoulder is in anatomic alignment. The distance between the distal tip of the clavicle and acromion process of scapula appears to be widened. This is suggestive of AC joint laxity which may indicate injury of involving the acromioclavicular ligament. Correlate clinically for site pain. RAD/Shoulder min 2 Views IMPRESSION: Mild widening of the acromioclavicular joint could suggest injury to the acromi oclavicular ligament. This may be further evaluated with MRI. No definite fracture is identified. Reading Location: [facility]
[2025-01-05 20:58] VITALS: BP 135/103; PULSE 65; O2SAT 99
[2025-01-05 21:18] LABS: Anion Gap 10 (5-15); BUN 8 mg/dL (4-19); BUN/Creat Ratio 10.5 RATIO (10-20); Calcium,Total 9.1 mg/dL (7.6-11.0); Carbon Dioxide 25.2 mmol/L (21.0-32.0); Chloride 102 mmol/L (98-108); Creatinine, Serum 0.74 mg/dL (0.70-1.20); EST Glomerular Filtration Rate 108 (>60); Estimated Creatinine Clearance 106.69 ml/min (50-250); Glucose 91 mg/dL (70-99); Potassium 4.2 mmol/L (3.3-5.1); Sodium Level 137 mmol/L (133-145)
[2025-01-05] MEDS: Ketorolac 15 MG/ML Vial IV ×2 (21:51→22:33)
--- NOTE | 2025-01-05 22:11 | EX.ED.UPPERE ---
HPI History of Present Illness Chief Complaint: Upper Extremity Injury Narrative Narrative: Patient is a 54-year-old male with no known significant past medical history does not follow with a physician on a regular basis who presents to the emergency department chief complaint of right sided back pain. He states that this has been going on for several weeks now he states that it is not getting any better. He states that he originally thought he heard after shoveling a significant amount of gravel. Patient states that he does smoke and also admits to marijuana use however denies any alcohol use. Patient states that he does have pain with deep inspiration. PFSH PFSH Medical History no medical history Home Medications ?Medication ?Instructions ?Recorded ?Last Taken ?Type cyclobenzaprine 5 mg tablet 5 mg PO TID PRN muscle spasm #14 01/05/25 Unknown Rx tabs ondansetron 4 mg disintegrating 4 mg PO Q6H PRN nausea and 01/05/25 Unknown Rx tablet vomiting #20 tabs oxycodone-acetaminophen 5 mg-325 1 tab PO Q6H PRN pain 3 days #12 01/05/25 Unknown Rx mg tablet (Endocet) tabs Allergy/AdvReac Type Severity Reaction Status Date / Time No Known Allergies Allergy Verified 01/05/25 19:17 Family History no significant family his Surgical History no surgical history Social History Smoking Status: Current every day smoker tobacco type: cigarettes ROS ROS ED ROS Narrative Constitutional: Denies fevers, chills, headaches, lightness, dizziness Eyes: Denies changes double vision blurry vision Cardiovascular: Denies chest pain or palpitations Respiratory: Complains of pain with deep inspiration as noted above with mild shortness of breath denies coughing Abdomen: Denies abdominal pain nausea vomit diarrhea Neurological: Denies numbness, exam tingling Musculoskeletal: Complains of shoulder and back pain as noted above Skin: Denies rashes or lesions EXAM Physical Exam Narrative Exam Narrative: General: Patient lying in bed rest comfortably did not appear to be in acute distress Head: atraumatic, normocephalic Eyes: PERRL bilaterally, EOMI bilaterally, no conjunctival injection noted Neck: Soft, supple, trach midline Cardiovascular: Regular rate and rhythm no murmurs gallops rubs noted Respiratory: Clear to auscultation bilaterally Abdomen: Soft, nondistended, nontender to palpation Musculoskeletal: Patient does have full range of motion of his shoulder but does note some pain with movement Extremities: +5/5 strength in the bilateral upper and lower extremities, radial pulses +2/4 in the bilateral extremities, no pedal edema on exam Neurological: Patient following commands knew he was at [facility] year is 2024. Sensation grossly intact Skin: Warm, dry, intact no rashes or lesions noted Const Vital Signs: 01/05/25 19:17 01/05/25 20:22 01/05/25 20:58 Temperature 97 F L Temperature Source Temporal Pulse Rate 77 65 Respiratory Rate 18 Blood Pressure 168/95 H 135/103 H Blood Pressure Mean 119 113 Pulse Ox 100 99 Oxygen Delivery Method Room Air Room Air Room Air MDM MDM MDM Narrative Medical decision making narrative: Patient is a 54-year-old male who presented to the emergency department with a chief complaint of right shoulder pain for several weeks. On the differential diagnose includes but limited to ACS, pneumonia, pneumothorax, proximal humerus fracture, dislocation, cancer. Once workup is obtained reviewed he will be reevaluated. Patient's CBC was reviewed and showed no evidence leukocytosis white blood count normal at 6.8, hemoglobin 15.2, platelet count normal at 308. Patient sodium normal 137, calcium of 4.2, creatinine was 0.74. Patient's EKG was reviewed by myself which showed sinus rhythm with a rate of 69 bpm. Patient's shoulder x-ray reviewed by myself by radiology which showed with mild widening of the AC joint could represent a injury to the acromioclavicular ligament may be evaluated with MRI further no definitive fracture noted. Patient CTA of his chest showed no evidence of pulm embolism however there is consult opacity within the left upper lobe which is nonspecific however most concerning for pulmonary neoplasm recommending PET CT scan. Moderate coronary calcification with moderate emphysema noted. Did discuss results with the patient and significant other bedside I provide a hard copy of these results with him. I advised him that he needs to follow-up with blasting worker Dr. Duque in the outpatient setting. He was encouraged to return for worsening symptoms or concerns. He is agreeable this plan all question concerns answered he is discharged home in stable condition. For his pain will do multimodal pain therapy including for mild to moderate pain rotating Tylenol ibuprofen [id number]. For severe pain and breakthrough pain we will give him a short prescription for Percocet Zofran. He also be given prescription for cyclobenzaprine. He is advised not operate anything under the influence these medications. Lab Data Labs: Laboratory Results - last 24 hr 01/05/25 20:15 WBC 6.8 RBC 4.84 Hgb 15.2 Hct 43.8 MCV 90.5 MCH 31.4 MCHC 34.7 RDW Std Deviation 40.4 RDW Coeff of Paras 12.3 Plt Count 308 MPV 9.4 Immature Gran % (Auto) 0.100 Neut % (Auto) 52.3 Lymph % (Auto) 36.4 [place] % (Auto) 7.3 Eos % (Auto) 2.9 Baso % (Auto) 1.0 Absolute Neuts (auto) 3.6 Absolute Lymphs (auto) 2.48 Nucleated RBC % 0 Sodium 137 Potassium 4.2 Chloride 102 Carbon Dioxide 25.2 Anion Gap 10 BUN 8 Creatinine 0.74 Estim Creat Clear Calc 106.69 Est GFR (MDRD) Non-Af 108 BUN/Creatinine Ratio 10.5 Glucose 91 Calcium 9.1 Radiography Diagnostic Testing: Clinical Impression(s) from Imaging Studies Chest CTA 01/05/25 20:08 IMPRESSION: 1. No acute pulmonary embolism. 2. Consolidative opacity within the left upper lobe, which is nonspecific, however most concerning for pulmonary neoplasm. PET-CT examination and correlation with any prior chest imaging is recommended. Additional differential considerations include pneumonitis/pneumonia. 3. Moderate emphysema. 4. Moderate coronary artery calcifications. [facility] Should[facility] X-Ray 01/05/25 20:33 IMPRESSION: Mild widening of the acromioclavicular joint could suggest injury to the acromioclavicular ligament. This may be further evaluated with MRI. No definite fracture is identified. Reading Location: [facility] Discharge Plan Triage Chief Complaint: Upper Extremity Injury ED Provider: Malcolm Damon Dx/Rx/DC Orders Clinical Impression: Right shoulder pain, Abnormal chest CT Prescriptions: New cyclobenzaprine 5 mg tablet 5 mg PO TID PRN (Reason: muscle spasm) Qty: 14 0RF oxycodone-acetaminophen [Endocet] 5-325 mg tablet 1 tab PO Q6H PRN (Reason: pain) 3 Days Qty: 12 0RF ondansetron 4 mg tablet,disintegrating 4 mg PO Q6H PRN (Reason: nausea and vomiting) Qty: 20 0RF Primary Care Provider: Care Physician,No Primary Referrals: Care Physician,No Primary [Primary Care Provider] - Jesse Duque DO [Med Staff - Active Staff] - Laura Son, N[employer] [[facility]] - Activity Restrictions/Additional Instructions: Follow-up with Dr. Duque in the outpatient setting as well as the primary care physician that you referred to. You need to call Dr. Duque's office tomorrow for a scheduled appointment regarding your abnormal CT chest. In regards to your pain rotate Tylenol and ibuprofen [id number] when you do this you can take something every 3 hours max dose of Tylenol is 4000 mg max dose of ibuprofen is 3200 mg. Use the Percocet and Zofran for severe pain. Use the muscle laxer as prescribed. Do not operate anything under the influence of the Endocet or the muscle laxer they will make you drowsy. Return with worsening symptoms or concerns. Print Language: [place]an Disposition Disposition: Home, Self Care
[2025-01-05 22:17] VITALS: BP 131/95; PULSE 68; RESP 13; TEMP 36.1; O2SAT 98
[2025-01-05] MEDS: Orphenadrine 60 MG/2 ML Ampul 30 MG IM (22:34)
== END 2025-01-05 22:58 | disposition home or self-care (01) ==
PROVIDERS: Emergency Provider Emergency Medicine; Visit Provider Emergency Medicine
DX: M25.511 Pain in right shoulder (principal); J43.9 Emphysema, unspecified; F17.210 Nicotine dependence, cigarettes, uncomplicated; R93.89 Abnormal findings on diagnostic imaging of other specified body structures
CPT/HCPCS: 71275; 73030; 80048; 85025; 93005; 96361; 96374; 96375; 96376; 99283; Q9967; A4216; J2405

== ENCOUNTER 2025-02-13 20:38 | Emergency (ER) | payer MEDICAID, SELFPAY ==
[2025-02-13 20:39] VITALS: BP 136/104; PULSE 73; RESP 15; TEMP 36.6; O2SAT 100; BMI 25.3
[2025-02-13] MEDS: Lidocaine 1% (20 ml mdv) 20 ML Vial INFILT (20:51)
--- NOTE | 2025-02-13 21:00 | EX.ED.UPPERE ---
HPI History of Present Illness HPI Narrative: Patient presents with fishhook to his right middle finger that occurred today. Patient states he was organizing his fishing equipment when he accidentally got a hook stuck into his finger. Patient states his last tetanus was 1 year ago. Patient describes his pain as sharp. Patient states it is worse with any movement. Patient denies any paresthesias or weakness. Patient denies any other injuries. Chief Complaint: Wound Informant: patient Occured/Mechanism Mechanism/Context: Yes puncture wound Onset/Context/Timing Onset: Today Context: Sudden Onset Timing: Continuous Quality of Pain: Sharp Location: Right middle finger Worsened by: Movement Relieved by: Nothing Associated Symptoms Associated Symptoms: Negative for Parasthesia, Weakness or Loss of Funtion PFSH PFSH Medical History no medical history no medical history Home Medications ?Medication ?Instructions ?Recorded ?Last Taken ?Type NK 02/13/25 Unknown History cephalexin 500 mg capsule 500 mg PO Q6 #40 CAPSULES 02/13/25 Unknown Rx Allergy/AdvReac Type Severity Reaction Status Date / Time No Known Allergies Allergy Verified 02/13/25 20:39 Family History Father Diabetes Surgical History no surgical history no surgical history Social History Smoking Status: Current every day smoker tobacco type: cigarettes ROS ROS ED Constitutional Constitutional ED: Denies chills or fever(s) Eyes Eyes: Denies blurry vision or change in vision ENT ENT ED: Denies rhinorrhea or sore throat Cardiovascular Cardiovascular: Denies chest pain or palpitations Respiratory/Chest Respiratory/Chest: Denies cough or dyspnea Gastrointestinal Gastrointestinal: Denies nausea or vomiting Genitourinary Genitourinary ED: Denies dysuria or hematuria Musculoskeletal Musculoskeletal: Denies back pain or neck pain Integumentary Denies abscess or rash Neurologic Neurologic: Denies headache(s) or weakness Allergic/Immunologic Allergic/Immunologic ED: Denies mouth swelling or urticaria EXAM Physical Exam Const Vital Signs: 02/13/25 20:39 Temperature 97.8 F Temperature Source Temporal Pulse Rate 73 Respiratory Rate 15 Blood Pressure 136/104 H Blood Pressure Mean 114 Pulse Ox 100 Oxygen Delivery Method Room Air Positive well nourished and well developed General Appearance ED: well developed and NAD HEENT Reports moist mucous membranes Neck full ROM and supple Extremity Extremity Narrative: There is a fishhook embedded in the pad of the right middle finger. There is no surrounding erythema. There is no active bleeding noted. Sensation was intact to light touch in all digits. Capillary refill was less than 2 seconds in all digits. There is good range of motion of the MP, PIP, and DIP joints of the right middle finger. Neuro oriented x3, CN's II-XII intact bilaterally, moves all extremities, no focal motor deficits and no sensory deficits noted Sensorium / Orientation: alert Motor Exam: strength 5/5 throughout Psych mental status grossly normal MDM MDM MDM Narrative Medical decision making narrative: The pad of the right middle finger was cleaned and anesthetized with 1% lidocaine locally. The fishhook was pushed through the skin and the tip of the hook with the renee was cut off. The fishhook was then removed. Bacitracin dressing was applied. Patient tolerated the procedure well. Patient was given a dose of Keflex here. Patient was given a prescription for Keflex. Patient was instructed to keep the wound clean and dry. Patient was instructed to follow-up with his primary care physician in 5 to 7 days. Patient understood and was agreeable with the plan. All questions were answered. Discharge Plan Triage Chief Complaint: Wound ED Provider: Jerson Danielle Dx/Rx/DC Orders Clinical Impression: Foreign body in skin of right middle finger, Tobacco use Instructions: ED Foreign Body, Soft Tissue (Removed) Prescriptions: New cephalexin 500 mg capsule 500 mg PO Q6 Qty: 40 0RF No Action NK Primary Care Provider: Care Physician,No Primary Referrals: Care Physician,No Primary [Primary Care Provider] - Print Language: Cambodian Disposition Disposition: Home, Self Care
[2025-02-13] MEDS: Cephalexin 500 MG Capsule PO (21:10)
[2025-02-13 21:11] VITALS: BP 136/104; PULSE 73; RESP 16; TEMP 36.6; O2SAT 100
== END 2025-02-13 21:13 | disposition home or self-care (01) ==
LOC: ED 21:11
PROVIDERS: Emergency Provider Emergency Medicine; Visit Provider Emergency Medicine
DX: S61.242A Puncture wound with foreign body of right middle finger without damage to nail, initial encounter (principal); F17.210 Nicotine dependence, cigarettes, uncomplicated; W26.8XXA Contact with other sharp object(s), not elsewhere classified, initial encounter
CPT/HCPCS: 64450; 99283